=== PATIENT | female | born 1985 | race Caucasian/White ===

== ENCOUNTER → 2023-10-08 09:46 | Outpatient (REF) | payer OTHER, SELFPAY | LOC: WDC 09:46 | PROVIDERS: ATTENDING PHYSICIAN Nurse Practitioner Women's Health; FAMILY PHYSICIAN Family Medicine | DX: N63.0 Unspecified lump in unspecified breast (principal); Z80.3 Family history of malignant neoplasm of breast; N63.21 Unspecified lump in the left breast, upper outer quadrant | CPT/HCPCS: 76642; 77062; 77066 ==